=== PATIENT | male | born 1975 | race Caucasian/White ===

== ENCOUNTER 2020-09-04 07:46 | Emergency (ER) | payer BC, SELFPAY ==
[2020-09-04 07:50] VITALS: BP 130/85; PULSE 87; RESP 20; TEMP 36.4; O2SAT 100
--- NOTE | 2020-09-04 08:49 | ED.HA ---
HPI - Headache General Chief Complaint: Headache Stated Complaint: migraine Time Seen by Provider: 09/04/20 08:47 Source: patient Mode of arrival: ambulatory Limitations: no limitations History of Present Illness HPI Narrative: 45 years old white male presents with left frontal throbbing headache associated with nausea started 9:30 PM last night. Similar to his previous migraine headaches. Currently patient on topiramate and amitriptyline. Patient report that this migraine is not different than before, but did not get better on his regular medication. Last similar migraine headache was 3 weeks ago. Patient report a lot of stress lately. Patient denies any fever, chills, vomiting, abdominal pain, chest pain, shortness of breath, back pain. Patient does smoke, uses marijuana, denies drinking alcohol. Denies any other medical disease except migraine headache Related Data Allergies Allergy/AdvReac Type Severity Reaction Status Date / Time No Known Allergies Allergy Unverified 06/29/19 21:47 Review of Systems Review of Systems: Narrative: CONSTITUTIONAL: Denies fever, chills, or sweats. EYES: Denies visual changes, redness, or discharge. ENT: Denies rhinorrhea, congestion, sore throat, or otalgia. CARDIOVASCULAR: Denies chest pain, palpitations, or edema. RESPIRATORY: Denies cough or dyspnea. GASTROINTESTINAL: Denies abdominal pain, nausea, vomiting, or diarrhea. GENITOURINARY: Denies dysuria or hematuria. SKIN: Denies rash or itching. MUSCULOSKELETAL: Denies back pain, joint pain, or myalgia. NEUROLOGIC: Denies headache, numbness, or weakness. PSYCHIATRIC: Denies anxiety or depression. PMFSH Past Medical History Medical History (Updated 09/04/20 @ 10:19 by David Guerrero MD) Migraine headache Social History Social History (Updated 09/04/20 @ 08:53 by David Guerrero MD) Social History: Patient smokes, uses marijuana, denies drinking alcohol Second hand tobacco smoke exposure: No Exam Narrative: Exam Narrative: General appearance: Well-developed, well-nourished Skin: Normal color Head: Normocephalic, nontraumatic Eyes: Clear conjunctiva ENT: Oropharynx normal, ears normal, nose normal Neck: Supple, nontender Chest and respiratory: Airway patent, no respiratory distress, no accessory muscle use Heart: Regular rate/rhythm Abdomen: Soft, nontender, no organomegaly, quiet bowel sounds Vascular: Normal peripheral pulses, normal capillary refill. Musculoskeletal: Normal range of motion, nontender back Neurologic: Alert and oriented ?3, [employer] is normal as tested, no gross motor deficit Course Course Emergency Course: Improving Vital Signs Vital signs: Vital Signs Temperature 36.4 C 09/04/20 07:50 Pulse Rate 87 09/04/20 07:50 Respiratory Rate 20 09/04/20 07:50 Blood Pressure 130/85 09/04/20 07:50 Pulse Oximetry 100 09/04/20 07:50 Temperature 36.4 C 09/04/20 07:50 Pulse Rate 87 09/04/20 07:50 Respiratory Rate 20 09/04/20 07:50 Blood Pressure 130/85 09/04/20 07:50 Pulse Oximetry 100 09/04/20 07:50 MDM - Headache MDM Narrative Medical decision making narrative: Stress inducing migraine headache is my concern. Patient symptoms resolved after IV normal saline, Reglan, Benadryl and Toradol. The plan send patient home and continue home medication. Differential Diagnosis Differential diagnosis: Likely migraine and tension headache Critical Care Time Critical Care Time Critical Care Time: No Discharge Plan Discharge Clinical Impression: Migraine Qualifiers: Migraine type: without aura Status migrainosus presence: without status migrainosus Intractability: not intractable Qualified Code(s): Deneen
[2020-09-04] MEDS: SODIUM CHLORIDE 0.9% IV 1,000 ML 999 ML IV CONT (08:56)
[2020-09-04] MEDS: KETOROLAC 30 MG/ML VIAL (*BKC) IV PUSH (08:57)
[2020-09-04] MEDS: METOCLOPRAMIDE HCL INJ 10 MG/2 ML VIAL IV PUSH (08:57)
[2020-09-04] MEDS: diphenhydrAMINE HCl INJ 50 MG/ML VIAL IV PUSH (08:57)
[2020-09-04 10:39] VITALS: BP 132/75; PULSE 78; RESP 18; O2SAT 99
== END 2020-09-04 10:41 | disposition home or self-care (01) ==
PROVIDERS: Emergency Provider Emergency Medicine; PCP Psychiatry & Neurology Neurology
DX: G43.009 Migraine without aura, not intractable, without status migrainosus (principal)
CPT/HCPCS: 96361; 96374; 96375; 99284; J1200; J1885; J2765; J7030

== ENCOUNTER 2021-02-01 13:42 | Emergency (ER) | payer BC, SELFPAY ==
--- NOTE | ~2021-02-01 | XR_ITS ---
EXAMINATION: XR elbow RT min 3V DATE: 02/01/2021 14:09 INDICATION: Right elbow pain and swelling. TECHNIQUE: 4 views of right elbow were obtained. COMPARISON: Right forearm radiographs 01/19/2011 FINDINGS: Bone alignment is normal. No acute fracture. There is plate and screw fixation of radial di aphysis. Joint spaces are normal. No elbow joint effusion. IMPRESSION: 1. No acute fracture. Reviewed, dictated and finalized at location A. IMPRESSION: 1. No acute fracture.
--- NOTE | ~2021-02-01 | US_ITS ---
EXAMINATION: US venous doppler UE RT DATE: 02/01/2021 14:48 INDICATION: Right arm pain and swelling TECHNIQUE: Connelly scale images with and without compression and Doppler images of the right upper extre mity veins were obtained. COMPARISON: None. FINDINGS: The right internal jugular vein, subclavian vein, axillary vein, brachial veins, basilic vein, radial vein, and ulnar vein are patent. There is superficial thrombosis of the right cephalic vein. IMPRESSION: 1. No evidence for deep venous thrombosis of the right upper extremity. 2: Superficial thrombosis of the right cephalic vein. Reviewed, dictated and finalized at location A.
--- NOTE | ~2021-02-01 | XR_ITS ---
XR forearm RT 2V 02/01/2021 14:32 Indication: Right forearm pain and swelling Procedure: 2 views right forearm Comparison: Comparison to multiple prior studies sequentially, with oldest reviewed study dated 11/2010. Findings: There is a radial side plate and screws transfixing the diaphysis. There is overlying heter otopic ossification within the soft tissues with moderate ventral soft tissue swelling. No fracture o r traumatic malalignment is identified. Hardware appears to be intact. Impression: 1: No acute bone or joint abnormality. 2: Moderate ventral soft tissue swelling. Reviewed, dictated and finalized at location A. Impression: 1: No acute bone or joint abnormality. 2: Moderate ventral soft tissue swelling.
[2021-02-01 13:43] VITALS: BP 119/75; PULSE 90; RESP 18; TEMP 36.3; O2SAT 100
--- NOTE | 2021-02-01 14:25 | ED.UPPEXIN ---
HPI - Extremity Injury (Upper) General Chief Complaint: Extremity Injury, Upper Stated Complaint: right elbow swelling Time Seen by Provider: 02/01/21 13:48 Source: patient Mode of arrival: ambulatory Limitations: no limitations History of Present Illness HPI narrative: This is a 45-year-old male that presents the emergency department for right forearm pain x2 weeks. Reports history of orthopedic surgery with plates and screws about 10 years ago. This was done at [facility]. Reports no new injuries or trauma. Reports worsening pain and over the last couple of weeks. Also reports that he gets tingling in his hand and fingers. Denies fever, erythema, warmth, decreased range of motion, or numbness. Related Data Home Medications Medication Instructions Recorded Confirmed amitriptyline 02/01/21 hydrocodone-acetaminophen tablet 02/01/21 topiramate 02/01/21 Allergies Allergy/AdvReac Type Severity Reaction Status Date / Time No Known Allergies Allergy Unverified 02/01/21 13:48 Review of Systems Review of Systems: Narrative: CONSTITUTIONAL: Denies fever SKIN: Denies rash MUSCULOSKELETAL: Reports joint pain, and myalgia. NEUROLOGIC: Denies numbness All systems reviewed & are unremarkable except as noted in HPI and below PMFSH Past Medical History Medical History (Updated 02/01/21 @ 15:25 by Madison Bejarano PA-C) Migraine headache Social History Social History (Updated 09/04/20 @ 08:53 by David Guerrero MD) Social History: Patient smokes, uses marijuana, denies drinking alcohol Second hand tobacco smoke exposure: No Gender identity (if verbalized by the patient): Male Exam Narrative: Exam Narrative: GENERAL: Well-appearing, well-nourished, and in no acute distress. HEAD: Normocephalic, atraumatic. EYES: EOMI. EXTREMITIES: Normal range of motion. No edema, erythema or warmth. Normal radial pulses. Normal sensation SKIN: Warm, dry, no rash. NEURO: No focal deficits. Alert and oriented x3. PSYCH: Normal mood and affect Course Vital Signs Vital signs: Vital Signs Temperature 97.3 F L 02/01/21 13:43 Pulse Rate 90 02/01/21 13:43 Respiratory Rate 18 02/01/21 13:43 Blood Pressure 119/75 02/01/21 13:43 Pulse Oximetry 100 02/01/21 13:43 Temperature 97.3 F L 02/01/21 13:43 Pulse Rate 90 02/01/21 13:43 Respiratory Rate 18 02/01/21 13:43 Blood Pressure 119/75 02/01/21 13:43 Pulse Oximetry 100 02/01/21 13:43 MDM - Extremity Injury (Upper) MDM Narrative Medical decision making narrative: Patient presents the emergency department for right forearm pain present over the last couple weeks. No known injury or trauma. Patient is neurovascularly intact. He is afebrile and nontoxic-appearing. No erythema or warmth of the arm. Right forearm and elbow x-rays are without acute osseous abnormalities. Hardware does appear intact. Right upper extremity venous Doppler is without evidence of DVT. It does show superficial thrombosis of the right cephalic vein. Patient was instructed to take aspirin daily and use warm compresses to the area. He was instructed to follow back up with his orthopedic surgeon as well. He was given warnings to return to the ER Imaging Data Radiologist's impression: ITS Impressions Elbow X-Ray 02/01/21 14:13 IMPRESSION: 1. No acute fracture. Forearm X-Ray 02/01/21 14:34 Impression: 1: No acute bone or joint abnormality. 2: Moderate ventral soft tissue swelling. Venous Doppler Study 02/01/21 14:51 IMPRESSION: 1. No evidence for deep venous thrombosis of the right upper extremity. 2: Superficial thrombosis of the right cephalic vein. Critical Care Time Critical Care Time Critical Care Time: No Discharge Plan Discharge Clinical Impression: Acute thrombosis of right cephalic vein Patient Disposition: Home, Self-Care Condition: Stable Instructions: Superficial Thrombophlebitis (ED) Additio
[2021-02-01] MEDS: HYDROcodone/acetaminophen (*CRX) 5-325 MG TABLET 1 TAB PO (14:54)
== END 2021-02-01 15:31 | disposition home or self-care (01) ==
PROVIDERS: Emergency Provider Family Medicine; PCP Psychiatry & Neurology Neurology
DX: I82.611 Acute embolism and thrombosis of superficial veins of right upper extremity (principal)
CPT/HCPCS: 73080; 73090; 93971; 99284; A9270

== ENCOUNTER 2021-06-30 06:55 | Emergency (ER) | payer OTHER, SELFPAY ==
[2021-06-30] VITALS (21 sets, daily range): BP systolic 98–111; BP diastolic 68–77; PULSE 58–99; RESP 16–18; TEMP 36.2; O2SAT 98–100
--- NOTE | 2021-06-30 07:37 | ED.HA ---
HPI - Headache General Chief Complaint: Headache Stated Complaint: migraine Time Seen by Provider: 06/30/21 07:36 Source: patient Mode of arrival: ambulatory Limitations: no limitations History of Present Illness HPI Narrative: Patient is a 46-year-old male with a history of classic migraine headaches who presents for evaluation of acute migraine headache pain. Patient states headache began last night, gradual in nature, worsened overnight into this morning. Patient states he has a history of migraine headaches, states that his headache originated on the right side then traveled to the left and now encompasses his entire head. He denies any facial numbness, extremity numbness or weakness. No difficulty with ambulation. He does report nausea with one episode of emesis. He reports sensitivity to light. He reports sensitivity to sound. He states this headache pain is typical of his usual headaches. He took a dose of amitriptyline and Topamax which is prescribed to him, both of which did not improve the headache pain. He states that normally when this happens he comes to the emergency department for treatment with IV fluids and medications. Patient denies history of Covid. No chest pain or abdominal pain. He denies fever, chills, neck pain. Patient states anxiety and stress is a significant trigger for him. Patient states quite a few stressors going on in his life currently. Related Data Allergies Allergy/AdvReac Type Severity Reaction Status Date / Time No Known Allergies Allergy Verified 06/30/21 07:37 Review of Systems Review of Systems: CONSTITUTIONAL: Denies fever, chills, or sweats. EYES: Denies visual changes, redness, or discharge. ENT: Denies rhinorrhea, congestion, sore throat, or otalgia. CARDIOVASCULAR: Denies chest pain, palpitations, or edema. RESPIRATORY: Denies cough or dyspnea. GASTROINTESTINAL: Denies abdominal pain, nausea, vomiting, or diarrhea. GENITOURINARY: Denies dysuria or hematuria. SKIN: Denies rash or itching. MUSCULOSKELETAL: Reports headache without other joint pain, or myalgia. NEUROLOGIC: Denies headache, numbness, or weakness. [facility] Past Medical History Medical History Migraine headache Social History Social History Social History: Patient smokes, uses marijuana, denies drinking alcohol Second hand tobacco smoke exposure: No Gender identity (if verbalized by the patient): Male Exam Narrative: GENERAL: Awake, alert, conversant HEAD: Normocephalic, atraumatic. EYES: 2+ PERRLA and EOMI. ENT: Nares clear, no rhinorrhea or epistaxis. Mucous membranes moist. NECK: Supple. CHEST: No respiratory distress, breathing even and non labored HEART: Regular rate, sinus rhythm ABDOMEN:Non distended, non tender EXTREMITIES: Normal range of motion. No edema. SKIN: Warm, dry, no rash. NEURO:No focal deficits. Alert and oriented x3 Course Vital Signs Vital signs: Vital Signs Temperature 36.2 C L 06/30/21 06:58 Pulse Rate 99 06/30/21 06:58 Respiratory Rate 16 06/30/21 06:58 Blood Pressure 98/74 L 06/30/21 06:58 Pulse Oximetry 100 06/30/21 06:58 Temperature 36.2 C L 06/30/21 06:58 Pulse Rate 79 06/30/21 07:34 Respiratory Rate 18 06/30/21 07:34 Blood Pressure 108/73 06/30/21 07:34 Pulse Oximetry 100 06/30/21 07:34 MDM - Headache MDM Narrative Medical decision making narrative: The patient was evaluated in the emergency department for headache. Patient has a history of migraine headache, states this is typical of his migraine headaches in terms of symptoms. Patient's headache pain was not sudden or maximal in onset, he does describe it was more gradual in nature. There are no focal deficits on exam. Subarachnoid hemorrhage is felt to be unlikely given the clinical symptoms and exam findings. There is no history of fever and neck is supple to e
[2021-06-30] MEDS: METOCLOPRAMIDE HCL INJ 10 MG/2 ML VIAL IV PUSH (08:07)
[2021-06-30] MEDS: diphenhydrAMINE HCl INJ 50 MG/ML VIAL 25 MG IV PUSH (08:07)
[2021-06-30] MEDS: SODIUM CHLORIDE 0.9% IV 1,000 ML 999 ML IV CONT (08:07)
[2021-06-30 08:13] LABS: Basophils Absolute Auto 0.1 K/mm3 (0.0-0.1); Basophils Percent Auto 0.9 % (0.2-1.2); Eosinophils Absolute Auto 0.3 K/mm3 (0-0.3); Eosinophils Percent Auto 3.8 % (0-4.4); Hematocrit 45.1 % (42.0-52.0); Hemoglobin 15.2 g/dL (14.0-18.0); Immature Granulocyte Absolute 0.03 K/mm3 (0.00-0.031); Immature Granulocyte Percent A 0.3 % (0-0.5); Lymphocytes Absolute Auto 1.41 K/mm3 (0.9-3.2); Lymphocytes Percent Auto 15.7 % (18.3-44.2); Mean Corpuscular HGB Conc 33.7 g/dl (32-36); Mean Corpuscular Hemoglobin 30.5 pg (26-34); Mean Corpuscular Volume 90.6 fl (80-100); Mean Platelet Volume 8.5 fl (7.4-10.4); Monocytes Absolute Auto 0.5 K/mm3 (0.1-0.6); Monocytes Percent Auto 5.7 % (2.6-8.5); Neutrophils Absolute Auto 6.6 K/mm3 (1.3-6.7); Neutrophils Percent Auto 73.6 % (45.5-73.1); Platelet Count Result 266 k/mm3 (150-375); Red Blood Count 4.98 M/mm3 (4.6-6.20); Red Cell Distribution Width 13.3 % (11.5-14.5)
[2021-06-30] MEDS: KETOROLAC 15 MG/ML VIAL (*BKC) IV PUSH (08:13)
[2021-06-30] MEDS: MAGNESIUM SULF 2 GM/WATER 50ML 2 GM/50 ML BAG IVPB (08:14)
[2021-06-30 08:26] LABS: Anion Gap 8 mmol/L (8-16); Blood Urea Nitrogen 14 mg/dL (9-20); Calcium 9.4 mg/dL (8.4-10.2); Carbon Dioxide 23 mmol/L (22-30); Chloride 105 mmol/L (98-107); Estimated CRCL calculation 66 ml/min; Estimated Glomerular Filt Rate 59; Glucose 113 mg/dL (65-110); Sodium 136 mmol/L (137-145)
== END 2021-06-30 10:23 | disposition home or self-care (01) ==
PROVIDERS: Emergency Provider Emergency Medicine; PCP Psychiatry & Neurology Neurology
DX: G43.009 Migraine without aura, not intractable, without status migrainosus (principal)
CPT/HCPCS: 36415; 80048; 85025; 96365; 96367; 96375; 99284; J0131; J1100; J1200; J1885; J2765; J3475; J7030

== ENCOUNTER 2021-09-09 13:13 | Emergency (ER) | payer SELFPAY ==
[2021-09-09 13:22] VITALS: BP 127/85; PULSE 85; RESP 16; TEMP 36.7; O2SAT 100
--- NOTE | 2021-09-09 14:04 | ED.HA ---
HPI - Headache General Chief Complaint: Headache Stated Complaint: headache Time Seen by Provider: 09/09/21 14:04 Source: patient Mode of arrival: ambulatory Limitations: no limitations History of Present Illness HPI Narrative: Patient is a 46-year-old male with a history of migraine headache, presenting for evaluation of headache pain. Patient reports onset of headache yesterday. Onset at 230 pm with gradual worsening over the course of last night to this morning. Patient reports photophobia, nausea, and three episodes of vomiting. He denies bilious or bloody emesis. Pt denies fever, chest pain, dyspnea. He denies any focal weakness or numbness. He denies blurry vision. Pt usually take amytryptilne and topiramate for his migraines but is out of his medications. Headache lasted all over his head. He denies neck pain. No rash. No fall or injury. No head trauma. Not reportedly the worse headache of his life. Related Data Allergies Allergy/AdvReac Type Severity Reaction Status Date / Time No Known Allergies Allergy Verified 09/09/21 13:56 Review of Systems Review of Systems: CONSTITUTIONAL: Denies fever, chills, or sweats. EYES: Denies visual changes, redness, or discharge. Reports photophobia. ENT: Denies rhinorrhea, congestion, sore throat, or otalgia. CARDIOVASCULAR: Denies chest pain, palpitations, or edema. RESPIRATORY: Denies cough or dyspnea. GASTROINTESTINAL: Denies abdominal pain, reports nausea and vomiting GENITOURINARY: Denies dysuria or hematuria. SKIN: Denies rash or itching. MUSCULOSKELETAL: Denies back pain, joint pain, or myalgia. NEUROLOGIC:Reports headache without numbness, or weakness. [facility] Past Medical History Medical History Migraine headache Social History Social History Social History: Patient smokes, uses marijuana, denies drinking alcohol Second hand tobacco smoke exposure: No Gender identity (if verbalized by the patient): Male Exam Narrative: GENERAL: Awake, alert, uncomfortable appearing, covering eyes in room HEAD: Normocephalic, atraumatic. EYES: 2+ PERRLA and EOMI. ENT: Nares clear, no rhinorrhea or epistaxis. Mucous membranes moist. NECK: Supple. CHEST: No respiratory distress, breathing even and non labored HEART: Regular rate, sinus rhythm ABDOMEN:Non distended, non tender EXTREMITIES: Normal range of motion. No edema. SKIN: Warm, dry, no rash. NEURO:No focal deficits. Alert and oriented x3. Finger to nose intact bilaterally. EOMs intact without nystagmus. No facial droop/asymmetry noted bilaterally. Grimace intact. Intact sensation in face. Hearing intact bilaterally. Shoulder shrug intact. Strength 5/5 bilateral upper extremities. Strength 5/5 bilateral lower extremities. Reflexes 2+ patellar. Heel to willis intact bilaterally. Ambulatory exam deferred. Course Vital Signs Vital signs: Vital Signs Temperature 36.7 C 09/09/21 13:22 Pulse Rate 85 09/09/21 13:22 Respiratory Rate 16 09/09/21 13:22 Blood Pressure 127/85 09/09/21 13:22 Pulse Oximetry 100 09/09/21 13:22 Temperature 36.7 C 09/09/21 13:22 Pulse Rate 85 09/09/21 13:22 Respiratory Rate 16 09/09/21 13:22 Blood Pressure 127/85 09/09/21 13:22 Pulse Oximetry 100 09/09/21 13:22 MDM - Headache MDM Narrative Medical decision making narrative: The patient was evaluated in the emergency department for headache. Patient's headache pain was not sudden or maximal in onset. There are no focal deficits on exam. Subarachnoid hemorrhage is felt to be unlikely given the clinical symptoms and exam findings. Patient reports headache is similar to previous migraine headaches and he currently does not have any amitriptyline or Topamax which is what he usually takes to abort his migraine headaches. There is no history of fever and neck is supple to evaluation without meningismus. Meningitis is
[2021-09-09] MEDS: SODIUM CHLORIDE 0.9% IV 1,000 ML 999 ML IV CONT (15:01)
[2021-09-09] MEDS: METOCLOPRAMIDE HCL INJ 10 MG/2 ML VIAL IV PUSH (15:03)
[2021-09-09] MEDS: diphenhydrAMINE HCl INJ 50 MG/ML VIAL 25 MG IV PUSH (15:03)
[2021-09-09] MEDS: KETOROLAC 15 MG/ML VIAL (*BKC) IV PUSH (15:08)
[2021-09-09 15:18] LABS: Basophils Absolute Auto 0.1 K/mm3 (0.0-0.1); Basophils Percent Auto 0.6 % (0.2-1.2); Eosinophils Absolute Auto 0.3 K/mm3 (0-0.3); Eosinophils Percent Auto 1.9 % (0-4.4); Hemoglobin 14.6 g/dL (14.0-18.0); Immature Granulocyte Absolute 0.05 K/mm3 (0.00-0.031); Immature Granulocyte Percent A 0.3 % (0-0.5); Lymphocytes Absolute Auto 1.28 K/mm3 (0.9-3.2); Lymphocytes Percent Auto 8.9 % (18.3-44.2); Mean Corpuscular Volume 91.3 fl (80-100); Mean Platelet Volume 8.9 fl (7.4-10.4); Monocytes Absolute Auto 0.7 K/mm3 (0.1-0.6); Monocytes Percent Auto 4.5 % (2.6-8.5); Neutrophils Percent Auto 83.8 % (45.5-73.1); Platelet Count Result 286 k/mm3 (150-375); Red Blood Count 4.71 M/mm3 (4.6-6.20); Red Cell Distribution Width 13.1 % (11.5-14.5); White Blood Count 14.4 K/mm3 (4.5-10.0)
[2021-09-09] MEDS: MAGNESIUM SULF 2 GM/WATER 50ML 2 GM/50 ML BAG IVPB (15:22)
[2021-09-09 15:29] LABS: Anion Gap 5 mmol/L (8-16); Blood Urea Nitrogen 14 mg/dL (9-20); Calcium 9.3 mg/dL (8.4-10.2); Carbon Dioxide 29 mmol/L (22-30); Chloride 104 mmol/L (98-107); Estimated CRCL calculation 75 ml/min; Estimated Glomerular Filt Rate > 60; Glucose 105 mg/dL (65-110); Potassium 4.1 mmol/L (3.4-5.0); Sodium 138 mmol/L (137-145)
[2021-09-09] MEDS: AMITRIPTYLINE HCL 25 MG TABLET 75 MG PO (16:34)
[2021-09-09] MEDS: TOPIRAMATE 100 MG TABLET PO (16:35)
[2021-09-09 18:13] VITALS: BP 132/86; PULSE 72; RESP 14; TEMP 36.5; O2SAT 98
== END 2021-09-09 18:14 | disposition home or self-care (01) ==
PROVIDERS: Emergency Provider Emergency Medicine; PCP Psychiatry & Neurology Neurology
DX: G43.909 Migraine, unspecified, not intractable, without status migrainosus (principal)
CPT/HCPCS: 36415; 80048; 85025; 96365; 96367; 96375; 99284; A9270; J0131; J1100; J1200; J1885; J2765; J3475; J7030

== ENCOUNTER 2022-01-29 12:19 | Emergency (ER) | payer OTHER, SELFPAY ==
[2022-01-29 12:29] VITALS: BP 124/81; PULSE 87; RESP 18; TEMP 36.2; O2SAT 100
--- NOTE | 2022-01-29 15:25 | ED.HA ---
HPI - Headache General Chief Complaint: Headache Stated Complaint: migraine Time Seen by Provider: 01/29/22 14:48 History of Present Illness HPI Narrative: 46-year-old male, history of migraines presents to the emergency room with acute onset of headache. Patient states this is typical migraine type headache. Describes the headache as squeezing around his scalp. Headache is photophobic and phonophobic. Associated with mild nausea. Patient states he is noncompliant with amitriptyline and Topamax. Denies dizziness lightheadedness. Denies injury or trauma. Related Data Allergies Allergy/AdvReac Type Severity Reaction Status Date / Time No Known Allergies Allergy Verified 09/09/21 13:56 Review of Systems Review of Systems: CONSTITUTIONAL: Denies fever, chills, or sweats. EYES: Denies visual changes, redness, or discharge. ENT: Denies rhinorrhea, congestion, sore throat, or otalgia. CARDIOVASCULAR: Denies chest pain, palpitations, or edema. RESPIRATORY: Denies cough or dyspnea. GASTROINTESTINAL: Denies abdominal pain, nausea, vomiting, or diarrhea. GENITOURINARY: Denies dysuria or hematuria. SKIN: Denies rash or itching. MUSCULOSKELETAL: Denies back pain, joint pain, or myalgia. NEUROLOGIC: Reports headache. denies numbness, dizziness, or weakness. PSYCHIATRIC: Denies anxiety or depression. [facility] Past Medical History Medical History Migraine headache Social History Social History Social History: Patient smokes, uses marijuana, denies drinking alcohol Second hand tobacco smoke exposure: No Gender identity (if verbalized by the patient): Male Exam Narrative: GENERAL: Well-appearing, well-nourished, and in no acute distress. HEAD: Normocephalic, atraumatic. EYES: PERRLA and EOMI. ENT: Nares clear, no rhinorrhea or epistaxis. Mucous membranes moist. NECK: Supple. No adenopathy or masses. No carotid bruits or JVD CHEST: Clear to auscultation. No respiratory distress. No wheezes rales or rhonchi HEART: Regular rate and rhythm. No murmur heard. Normal peripheral pulses. ABDOMEN: Soft, nontender, nondistended, normal active bowel sounds. EXTREMITIES: Normal range of motion. No edema. SKIN: Warm, dry, no rash. NEURO: No focal deficits. Alert and oriented x3. PSYCH: Normal mood and affect. Course Vital Signs Vital signs: Vital Signs Temperature 36.2 C L 01/29/22 12:29 Pulse Rate 87 01/29/22 12:29 Respiratory Rate 18 01/29/22 12:29 Blood Pressure 124/81 01/29/22 12:29 Pulse Oximetry 100 01/29/22 12:29 Temperature 36.2 C L 01/29/22 12:29 Pulse Rate 87 01/29/22 12:29 Respiratory Rate 18 01/29/22 12:29 Blood Pressure 124/81 01/29/22 12:29 Pulse Oximetry 100 01/29/22 12:29 Discharge Plan Discharge Clinical Impression: Headache Qualifiers: Headache type: tension-type Headache chronicity pattern: acute headache Intractability: intractable Qualified Code(s): G44.201 - Tension-type headache, unspecified, intractable Patient Disposition: Home, Self-Care Condition: Stable Instructions: Antibiotic Form, Acute Headache (ED) Prescriptions: New amitriptyline 75 mg tablet 75 mg PO HS Qty: 30 RF: 0 topiramate [Topamax] 100 mg tablet 100 mg PO DAILY Qty: 30 RF: 0 No Action diphenhydramine HCl [Benadryl] 25 mg capsule 25 mg PO TID PRN (Reason: allergic reaction) Qty: 14 RF: 0 metoclopramide HCl [Reglan] 10 mg tablet 10 mg PO Q6H PRN (Reason: nausea and vomiting) Qty: 14 RF: 0 amitriptyline 75 mg tablet 75 mg PO HS 30 Days Qty: 30 RF: 0 topiramate 100 mg tablet 100 mg PO DAILY 30 Days Qty: 30 RF: 0 amitriptyline 75 mg tablet See Rx Instructions .ROUTE .COMPLEX Qty: 30 RF: 1 topiramate 100 mg tablet See Rx Instructions .ROUTE .COMPLEX Qty: 60 RF: 1 hydrocodone-acetaminophen 10-325 mg tablet 1 tablet PO
[2022-01-29] MEDS: SODIUM CHLORIDE 0.9% IV 1,000 ML 999 ML IV CONT (15:32)
[2022-01-29] MEDS: METOCLOPRAMIDE HCL INJ 10 MG/2 ML VIAL IV PUSH (15:33)
[2022-01-29] MEDS: KETOROLAC 30 MG/ML VIAL (*BKC) IV PUSH (15:34)
[2022-01-29] MEDS: diphenhydrAMINE HCl INJ 50 MG/ML VIAL 25 MG IV PUSH (15:34)
[2022-01-29 17:11] VITALS: BP 110/75; PULSE 72; RESP 14; TEMP 36.6; O2SAT 97
== END 2022-01-29 17:12 | disposition home or self-care (01) ==
PROVIDERS: Emergency Provider Nurse Practitioner Family
DX: G44.201 Tension-type headache, unspecified, intractable (principal)
CPT/HCPCS: 96361; 96374; 96375; 99284; J1100; J1200; J1885; J2765; J7030

== ENCOUNTER 2023-01-22 21:13 | Emergency (ER) | payer BC, SELFPAY ==
[2023-01-22 21:58] VITALS: BP 130/77; PULSE 86; RESP 14; TEMP 36.9; O2SAT 98
--- NOTE | 2023-01-23 00:03 | PC.NURSE ---
Patient's sister approached intake desk and informed intake nurse that the patient wants to go home. 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 Hearing Aid Technician took patient out to his sisters car via wheelchair and patient was able to stand and get into his sister's van without difficulty. Patient alert upon leaving the ED in his sisters van.
== END 2023-01-23 00:03 | disposition left against medical advice (07) ==
DX: Z53.21 Procedure and treatment not carried out due to patient leaving prior to being seen by health care provider (principal)
CPT/HCPCS: 99199

== ENCOUNTER 2023-10-15 10:41 | Emergency (ER) | payer BC, SELFPAY ==
[2023-10-15 12:51] VITALS: BP 117/85; PULSE 66; RESP 20; TEMP 36.8; O2SAT 100
--- NOTE | 2023-10-15 13:41 | ED.GENADULT ---
[facility] - General Adult General Chief complaint: Back Pain/Injury Stated complaint: back pain Time Seen by Provider: 10/15/23 12:54 Source: patient Mode of arrival: ambulatory Limitations: no limitations History of Present Illness HPI narrative: This is a 48-year-old male who presents to the ED with chief complaint of left-sided back pain beginning after an injury 3 days ago. Reports that he was getting out of his car when he bent over he had sudden back pain the left side. States this causes difficulty with walking due to pain. Denies fevers, chills, numbness, weakness, saddle anesthesia, or problems with bowel or bladder dysfunction. States he is not taking anything for the pain last 3 days Related Data Allergies Allergy/AdvReac Type Severity Reaction Status Date / Time No Known Allergies Allergy Verified 10/15/23 14:05 Review of Systems Review of Systems: All systems as dictated in [facility] Past Medical History Medical History Migraine headache Social History Social History Social History: Patient smokes, uses marijuana, denies drinking alcohol Second hand tobacco smoke exposure: No Gender identity (if verbalized by the patient): Male Exam Narrative: GENERAL: Well-appearing, well-nourished, and in no acute distress. HEAD: Normocephalic, atraumatic. EYES: PERRLA and EOMI. ENT: Nares clear, no rhinorrhea or epistaxis. Mucous membranes moist. Oropharynx without tonsillar hypertrophy exudate or other lesions. NECK: Supple. No adenopathy or masses. CHEST: No respiratory distress. Clear to auscultation. No wheezes rales or rhonchi HEART: Regular rate and rhythm. No murmur heard. Normal peripheral pulses. ABDOMEN: Soft, nontender, nondistended, normal active bowel sounds. MSK: Mild lumbar paraspinal tenderness on the left side. No midline CT LS spine tenderness. Straight leg raise equivocal on the left and negative on the right. 5/5 strength and sensation in the upper and lower extremities. SKIN: Warm, dry, no rash. NEURO: Alert and oriented x3. No focal deficits. PSYCH: Normal mood and affect. Course Vital Signs Vital signs: Vital Signs Temperature 98.2 F 10/15/23 12:51 Pulse Rate 66 10/15/23 12:51 Respiratory Rate 20 10/15/23 12:51 Blood Pressure 117/85 10/15/23 12:51 Pulse Oximetry 100 10/15/23 12:51 Temperature 98.2 F 10/15/23 12:51 Pulse Rate 72 10/15/23 14:56 Respiratory Rate 18 10/15/23 14:56 Blood Pressure 107/68 10/15/23 14:56 Pulse Oximetry 100 10/15/23 14:56 Medical Decision Making MDM Narrative Medical decision making narrative: This patient presents with back pain most consistent with muscle strain. Differential diagnoses includes lumbago versus musculoskeletal spasm / strain versus sciatica. No back pain red flags on history or physical. Presentation not consistent with malignancy (lack of history of malignancy, lack of B symptoms), fracture (no trauma, no bony tenderness to palpation), cauda equina (no bowel or urinary incontinence/retention, no saddle anesthesia, no distal weakness), AAA, viscus perforation , pulmonary embolism, renal colic, pyelonephritis (afebrile, no CVAT, no urinary symptoms). Given the clinical picture, no indication for imaging at this time. He feels much improved with Toradol, Tylenol and Valium. Prescription for muscle relaxer sent. Pt will be discharged in stable condition. Return precautions given and supportive measures discussed. Pt is understanding and agreeable with plan for discharge and follow-up with PCP. Vital Signs Vital Signs: Vital Signs Temperature 98.2 F 10/15/23 12:51 Pulse Rate 66 10/15/23 12:51 Respiratory Rate 20 10/15/23 12:51 Blood Pressure 117/85 10/15/23 12:51 Pulse Oximetry 100 10/15/23 12:51 Temperature 98.2 F 10/15/23 12:51 Pulse Rate 7
[2023-10-15] MEDS: diazePAM INJ (*CRX) 10 MG/2 ML SYRINGE 5 MG IM (14:05)
[2023-10-15] MEDS: KETOROLAC 30 MG/ML VIAL (*BKC) IM (14:05)
[2023-10-15] MEDS: ACETAMINOPHEN 325 MG TABLET 650 MG PO (14:05)
[2023-10-15 14:56] VITALS: BP 107/68; PULSE 72; RESP 18; O2SAT 100
== END 2023-10-15 15:06 | disposition home or self-care (01) ==
PROVIDERS: Emergency Provider Physician Assistant
DX: S39.012A Strain of muscle, fascia and tendon of lower back, initial encounter (principal); X50.9XXA Other and unspecified overexertion or strenuous movements or postures, initial encounter
CPT/HCPCS: 96372; 99284; A9270; J1885; J3360